=== PATIENT | female | born 1995 | race American Indian/Alaskan Native ===

== ENCOUNTER 2018-12-19 11:46 | Emergency (ER) | payer OTHER ==
[2018-12-19 11:59] VITALS: BP 121/68
--- NOTE | 2018-12-19 12:07 | Emergency Department Report ---
ED Female HPI - General Chief complaint: Urogenital-Female Stated complaint: 5WKS /CRAMPS/PAIN Time Seen by Provider: 12/19/18 12:01 Source: patient Mode of arrival: Ambulatory Limitations: No Limitations - History of Present Illness Initial comments: Inga is a 23 yo female who was recently diagnosed with . JO August 20. [facility] [place]. She has had intermittent pelvic cramping for several days. Mild cramping. Has yeeast infection with vaginal discharge and itching. MD Complaint: vaginal discharge, pelvic pain -: Gradual Location: labia Radiation: suprapubic Severity: mild Quality: cramping Consistency: intermittent Improves with: none Worsens with: none Are you Now?: Yes Last Menstrual Period: 11/16/18 EDC: 08/23/19 - Related Data Sexually active: Yes Previous Rx's Medication Instructions Recorded Last Taken Type Miconazole/Cleanser 17 On Wipe 1 each VG QHS 7 Days #1 kit 12/19/18 Unknown Rx [Monistat 7 Combination Pack] Allergies Allergy/AdvReac Type Severity Reaction Status Date / Time ibuprofen Allergy Swelling Verified 12/19/18 11:50 ED Review of Systems ROS: Stated complaint: 5WKS /CRAMPS/PAIN Other details as noted in HPI Comment: All other systems reviewed and negative Constitutional: denies: fever, malaise Respiratory: denies: cough Cardiovascular: denies: chest pain ED Past Medical Hx - Past Medical History Previous Medical History?: No - Surgical History Past Surgical History?: No - Social History Smoking Status: Never Smoker Substance Use Type: None - Medications Home Medications: Home Medications Medication Instructions Recorded Confirmed Last Taken Type Miconazole/Cleanser 17 On Wipe 1 each VG QHS 7 Days #1 kit 12/19/18 Unknown Rx [Monistat 7 Combination Pack] ED Physical Exam - General Limitations: No Limitations General appearance: alert, in no apparent distress - Head Head exam: Present: atraumatic, normocephalic - Eye Eye exam: Present: normal appearance - ENT ENT exam: Present: mucous membranes moist - Neck Neck exam: Present: normal inspection, full ROM - Respiratory Respiratory exam: Present: normal lung sounds bilaterally. Absent: respiratory distress, wheezes, rales, rhonchi - Cardiovascular Cardiovascular Exam: Present: regular rate, normal rhythm, normal heart sounds. Absent: systolic murmur, diastolic murmur, rubs, gallop - GI/Abdominal GI/Abdominal exam: Present: soft, normal bowel sounds. Absent: distended, tenderness, guarding, rebound - Extremities Exam Extremities exam: Present: normal inspection - Back Exam Back exam: Present: normal inspection - Neurological Exam Neurological exam: Present: alert, oriented X3 - Psychiatric Psychiatric exam: Present: normal affect, normal mood - Skin Skin exam: Present: warm, dry, intact, normal color. Absent: rash ED Course Vital Signs 12/19/18 11:58 Temperature 98.5 F Pulse Rate 80 Respiratory 18 Rate Blood Pressure 121/68 O2 Sat by Pulse 100 Oximetry ED Medical Decision Making - Radiology Data Radiology results: report reviewed Ultrasound report according to radiologist's: Cystic structure possible yolk sac in the uterine fundus would represent EGA 5 weeks 2 days may represent an early gestational sac, moderate volume pelvic free fluid simple functional ovarian cyst - Medical Decision Making 1. pelvic cramping first trimester according to LMP and an estimated due date, estimated gestational age 5 weeks 0 days , she is currently pain-free. Ultrasound findings equivocal for IUP. There is a cystic structure which may represent early gestational sac which does correspond with estimated gestational age. I recommended return to the emergency department 2 days for repeat ultrasound and hCG level. She was also given ectopic return precautions. 2. Candidal vaginitis according to history. I do not suspect PID with this presentation. Prescribed Monistat Blood type B+ Critical care attestation.: If time is entered above; I have spent that time in minutes in the direct care of this critically ill patient, excluding procedure time. ED Disposition Clinical Impression: Threatened miscarriage in early , Candidal vaginitis Disposition: DC-01 TO HOME OR SELFCARE Is pt being admited?: No Does the pt Need Aspirin: No Condition: Stable Instructions: Threatened Miscarriage (ED) Additional Instructions: Please return in 2 days for repeat ultrasound and repeat hcg ( hormone) test Prescriptions: Miconazole/Cleanser 17 On Wipe [Monistat 7 Combination Pack] 1 each VG QHS 7 Days #1 kit Forms: Work/School Release Form(ED)
--- NOTE | 2018-12-19 13:18 | Ultrasound Report ---
OB Ultrasound HISTORY: pelvic cramping. TECHNIQUE: Grayscale and color Doppler imaging performed. COMPARISON: None FINDINGS: Transabdominal and endovaginal imaging was performed. Uterus measures 8.8 x 5.5 x 6.7 cm with cystic structure including a yolk sac in the uterine cavity n ear the fundus. Mean diameter is 5 mm which would correspond with an EGA of 5 weeks and 2 days. No fe kia cardiac activity is identified at this time. There are simple left ovarian cysts which are likely functional. Ovaries are otherwise unremarkable. There is moderate volume pelvic free fluid. IMPRESSION: 1. Cystic intrauterine structure as outlined above may represent an early gestational sac. No p ole or cardiac activity is identified at this point in time. Close follow-up recommended. 2. Likely functional left ovarian cysts and moderate volume pelvic free fluid. Signer Name: Ab James MD Signed: 12/19/2018 1:13 PM Workstation Name: [id number]
== END 2018-12-19 15:42 | disposition home or self-care (01) ==
LOC: ED 11:46
DX: O20.0 Threatened abortion (principal); B37.3 Candidiasis of vulva and vagina; Z79.899 Other long term (current) drug therapy; Z88.6 Allergy status to analgesic agent; Z3A.01 Less than 8 weeks gestation of pregnancy
CPT/HCPCS: 36415; 76801; 76817; 84702; 86900; 86901

== ENCOUNTER 2019-01-03 22:52 | Emergency (ER) | payer SELFPAY ==
[2019-01-03 23:19] VITALS: BP 110/70
[2019-01-03 23:52] LABS: Basophils # (Auto) 0.1 K/mm3 (0.0-0.1); Basophils % (Auto) 0.8 % (0.0-1.8); Eosinophils # (Auto) 0.1 K/mm3 (0.0-0.4); Eosinophils % (Auto) 1.1 % (0.0-4.3); Hematocrit 36.1 % (30.3-42.9); Hemoglobin 12.3 gm/dl (10.1-14.3); Lymphocytes # (Auto) 1.7 K/mm3 (1.2-5.4); Lymphocytes % (Auto) 21.8 % (13.4-35.0); Mean Corpuscular HGB Conc 34 % (30-34); Mean Corpuscular Volume 90 fl (79-97); Monocytes # (Auto) 0.8 K/mm3 (0.0-0.8); Platelet Count 204 K/mm3 (140-440); Red Blood Count 4.01 M/mm3 (3.65-5.03); Red Cell Distribution Width 13.5 % (13.2-15.2)
[2019-01-03] MEDS ORDERED: REGLAN IV ONE (23:54)
[2019-01-03] MEDS ORDERED: NACL 0.9% 1000 ML 1,000 ML IV ONE (23:54)
--- NOTE | 2019-01-04 00:20 | Emergency Department Report ---
HPI - General Chief Complaint: Abdominal Pain Time Seen by Provider: 01/03/19 23:44 - HPI HPI: 23-year-old -French female presents to the emergency department with the complaint of a two-week history of nausea and vomiting while . The patient is 7 weeks and says that she had a confirmed intrauterine by ultrasound [facility]. The patient was here about 2 weeks ago and had a workup and ultrasound done at that time that showed an equivocal intrauterine . Patient says that she was coming into the emergency Department for the nausea and vomiting when she suddenly developed some pelvic cramping. She denies any vaginal bleeding or dysuria but does admit to some vaginal discharge over the past week. The patient was also diagnosed with vaginal candidiasis on her last visit and says that she did take the Monistat. She does not have an [facility]. She has not taken anything for her symptoms prior to arrival. ED Past Medical Hx - Past Medical History Previous Medical History?: No - Surgical History Past Surgical History?: No - Social History Smoking Status: Never Smoker Substance Use Type: None - Medications Home Medications: Home Medications Medication Instructions Recorded Confirmed Last Taken Type Miconazole/Cleanser 17 On Wipe 1 each VG QHS 7 Days #1 kit 12/19/18 Unknown Rx [Monistat 7 Combination Pack] Clindamycin 2% [Clindamycin 2% VAG 1 applicatio VG QHS #1 tube 01/04/19 Unknown Rx CREAM] ED Review of Systems ROS: Stated complaint: 7WEEKS PREG,VOMITING,CRAMPS Other details as noted in HPI Comment: All other systems reviewed and negative Constitutional: denies: chills, fever Respiratory: denies: cough, shortness of breath Cardiovascular: denies: chest pain, edema Gastrointestinal: nausea, vomiting Genitourinary: discharge. denies: dysuria Musculoskeletal: denies: back pain, arthralgia Skin: denies: rash Neurological: denies: headache, weakness Physical Exam - Physical Exam Vital Signs: Vital Signs 01/03/19 23:12 Temperature 98.5 F Pulse Rate 76 Respiratory 18 Rate Blood Pressure 110/70 O2 Sat by Pulse 100 Oximetry Physical Exam: GENERAL: The patient is well-developed well-nourished. HENT: Normocephalic. Atraumatic. Patient has moist mucous membranes. EYES: Extraocular motions are intact. Pupils equal reactive to light bilaterally. NECK: Supple. Trachea is midline. CHEST/LUNGS: Clear to auscultation. There is no respiratory distress noted. HEART/CARDIOVASCULAR: Regular. There is no tachycardia. There is no murmur. ABDOMEN: Abdomen is soft, nontender. Patient has normal bowel sounds. There is no abdominal distention. SKIN: Skin is warm and dry. NEURO: The patient is awake, alert, and oriented. The patient is cooperative. The patient has no focal neurologic deficits. Normal speech. MUSCULOSKELETAL: There is no tenderness or deformity. There is no evidence of acute injury. PELVIC: There is a mild to moderate amount of thin white malodorous discharge. No vaginal or labial lesions seen. 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 ED Medical Decision Making - Lab Data Result diagrams: 01/03/19 23:34 01/03/19 23:34 - Radiology Data Radiology results: report reviewed ULTRASOUND OBSTETRIC Indication: , pelvic pain Findings: There is a single, living intrauterine . [place]-rump length = 11 cm = 7 weeks, 2 day(s). heart rate is 152 beats per minute. The ovaries are unremarkable aside from a 5 cm mildly complex cystlike lesion arising from the left ovary. There is no free fluid. Impression: Single, living intrauterine with estimated sonographic age of 7 weeks, 2 day(s). 5 cm cystlike lesion within the left ovary, similar to 12/21/2018. Tiny follow-up recommended. - Medical Decision Making This patient presents with some nausea, vomiting while and then today started developing some pelvic cramping. She later admitted to some vaginal discharge. The wet prep was positive for bacterial vaginosis. The rest of her labs are mostly unremarkable except for some mild dehydration seen with 20 ketones in the urine. No urinary tract infection. An IV was placed and the patient was given normal saline and a dose of Reglan. Upon reevaluation she is feeling greatly improved and was able to pass an oral challenge. There has been no vaginal bleeding. Transvaginal/ ultrasound shows a live intrauterine at about 7 weeks and 2 days. The patient has been given multiple referrals for [facility] for outpatient follow-up. She will be placed on clindamycin vaginal cream for treatment of the BV. She will return to the emergency Department with any worsening of her symptoms or any acute distress. - Differential Diagnosis , UTI, BV, Dehydration Critical Care Time: No Critical care attestation.: If time is entered above; I have spent that time in minutes in the direct care of this critically ill patient, excluding procedure time. ED Disposition Clinical Impression: Pelvic cramping, Dehydration, Bacterial vaginosis in Qualifiers: Weeks of gestation: less than 8 weeks Qualified Code(s): Z3A.01 - Less than 8 weeks gestation of Nausea & vomiting Qualifiers: Vomiting type: unspecified Vomiting Intractability: non-intractable Qualified Code(s): R11.2 - Nausea with vomiting, unspecified Disposition: TO HOME OR SELFCARE Is pt being admited?: No Condition: Stable Instructions: (ED), Bacterial Vaginosis (ED), Acute Nausea and Vomiting (ED) Additional Instructions: Increase your oral rehydration. Please follow-up with an [facility] [facility] [facility] [facility] in the next few days. Take/use the antibiotics as prescribed. Return to the emergency Department with any worsening of your symptoms or any acute distress. Prescriptions: Clindamycin 2% [Clindamycin 2% VAG CREAM] 1 applicatio [facility] #1 tube Referrals: [facility] [Primary Care Provider] - 3-5 Days [facility] [Provider Group] - 3-5 Days [facility] [Provider Group] - 3-5 Days Forms: STI Treatment and Prevention Time of Disposition: 02:24
[2019-01-04 00:32] LABS: Alanine Aminotransferase 10 units/L (7-56); Albumin 4.5 g/dL (3.9-5); BUN/Creatinine Ratio 13; Blood Urea Nitrogen 9 mg/dL (7-17); Calcium 9.6 mg/dL (8.4-10.2); Hemolysis Index 11
[2019-01-04 00:57] LABS: Bacteria,Urine 2+ /HPF (Negative); Bilirubin,Urine NEG (Negative); Blood,Urine SM (Negative); Color,Urine Amber (Yellow); Mucus,Urine 3+ /HPF; Urobilinogen,Urine < 2.0 mg/dL (<2.0)
--- NOTE | 2019-01-04 01:24 | Ultrasound Report ---
ULTRASOUND OBSTETRIC Indication: , pelvic pain Findings: There is a single, living intrauterine . [place]-rump length = 11 cm = 7 weeks, 2 day(s). heart rate is 152 beats per minute. The ovaries are unremarkable aside from a 5 cm mildly complex cystlike lesion arising from the left o vary. There is no free fluid. Impression: Single, living intrauterine with estimated sonographic age of 7 weeks, 2 day(s). 5 cm cystl hernesto lesion within the left ovary, similar to 12/21/2018. Tiny follow-up recommended. Signer Name: Tiago Paez MD Signed: 01/04/2019 1:20 AM Workstation Name: [id number]
== END 2019-01-04 02:46 | disposition home or self-care (01) ==
LOC: ED 22:52
DX: O26.891 Other specified pregnancy related conditions, first trimester (principal); O99.281 Endocrine, nutritional and metabolic diseases complicating pregnancy, first trimester; O23.591 Infection of other part of genital tract in pregnancy, first trimester; B96.89 Other specified bacterial agents as the cause of diseases classified elsewhere; E86.0 Dehydration; Z88.6 Allergy status to analgesic agent; Z3A.01 Less than 8 weeks gestation of pregnancy
CPT/HCPCS: 36415; 76801; 80053; 81001; 84702; 85025; 87210; 87591; 96374; 99284; J2765; J7030

== ENCOUNTER 2021-06-05 00:52 | Emergency (ER) | payer SELFPAY ==
[2021-06-05 01:00] VITALS: BP 119/77
== END 2021-06-05 02:55 | disposition left against medical advice (07) ==
LOC: ED 00:52
DX: F41.9 Anxiety disorder, unspecified (principal); Z53.21 Procedure and treatment not carried out due to patient leaving prior to being seen by health care provider